=== PATIENT | female | born 2005 | race Two or more races ===

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

== ENCOUNTER 2025-06-27 13:34 | Emergency (ER) | payer OTHER ==
[~2025-06-27] VITALS: Ht 162.6 cm; Wt 63.5 kg
[~2025-06-27 13:34] MED LIST: NABUMETONE750 MG PO; ONDANSETRON ODT4 MG PO
[2025-06-27 13:40] VITALS: BP 155/88; O2SAT 99
[2025-06-27] MEDS ORDERED: KETOROLAC TROMETHAMINE 30 MG VIAL IV ONE (15:15)
[2025-06-27] MEDS ORDERED: 0.9 % SODIUM CHLORIDE 1,000 ML IV ONE (15:15)
[2025-06-27] MEDS ORDERED: FAMOTIDINE/PF 20 MG/2 ML VIAL IV ONE (15:15)
[2025-06-27] MEDS ORDERED: ONDANSETRON HCL 2 MG/ML VIAL IV ONE (15:15)
[2025-06-27] MEDS ORDERED: FAMOTIDINE/PF 20 MG/2 ML VIAL ONE (15:36)
[2025-06-27] MEDS ORDERED: ONDANSETRON HCL 2 MG/ML VIAL ONE (15:36)
[2025-06-27] MEDS ORDERED: KETOROLAC TROMETHAMINE 30 MG VIAL ONE (15:36)
[2025-06-27 16:16] LABS: BASO % 0.4 % (0.1-1.2); EOS # 0.18 (0.04-0.54); EOS % 1.9 % (0.7-7.0); LYMPH # 2.41 (1.18-3.74); LYMPH % 25.2 % (19.3-53.1); MEAN PLATELET VOLUME 9.70 fl (9.4-12.4); MONO # 0.48 (0.24-0.82); MONO % 5.0 % (4.7-12.5); NEUT # 6.41 (1.56-6.13); NEUT % 67.2 % (34.0-71.1); RED CELL DISTRIBUTION WIDTH 12.7 % (11.6-14.4)
[2025-06-27 16:36] LABS: INR 1.04
[2025-06-27 16:46] LABS: ALT/SGPT 54 U/L (12-78); AST/SGOT 73 U/L (15-37); BILIRUBIN TOTAL 0.35 mg/dL (0.3-1.2); BUN CREA RATIO 17 (7.0-25.0); CREATININE SERUM 0.84 mg/dL (0.55-1.02); GFR 85.59; GLOBULINA 4.2 G/DL (2.4-3.5); GLUCOSE FASTING 95 mg/dL (65-100); OSMOLALITY SERUM 282 MOSM/KG (275-295)
[2025-06-27 20:10] LABS: URINE APPEARANCE Clear; URINE BILIRRUBIN Negative (NEGATIVE); URINE BLOOD Moderate; URINE COLOR Yellow; URINE GLUCOSE Negative (NEGATIVE); URINE KETONE 15 (NEGATIVE); URINE LEUKOCYTE Negative; URINE NITRATE Negative; URINE PROTEIN Negative (NEGATIVE); URINE UROBILINOGEN 0.2 E.U./dl
[2025-06-27 20:11] LABS: URINE BACTERIA 502.6 uL (0.0-1933); URINE EPITHELIAL CELLS 6.9 uL (0.0-38.8); URINE RBC 30.6 uL (0.0-20.8); URINE WBC 2.7 uL (0.0-23.2)
[2025-06-27 20:12] LABS: URINE CAST 0.00 uL (0.0-1.40)
[2025-06-27] MEDS ORDERED: DICY20TA PO (23:12)
== END 2025-06-28 00:53 | disposition home or self-care (01) ==
LOC: ER 13:34
DX: R10.20 Pelvic and perineal pain unspecified side (principal); N80.9 Endometriosis, unspecified; Z91.013 Allergy to seafood